=== PATIENT | female | born 1980 | race Caucasian/White ===

== ENCOUNTER 2016-12-07 13:17 | Emergency (ER) | payer OTHER ==
[2016-12-07 13:21] VITALS: BP 131/72; PULSE 84; TEMP 98; BMI 28.9
[2016-12-07 16:08] LABS: BASOPHIL 0.5 % (0-2.0); EOSINOPHIL 0.8 % (0-4.5); MCH 22.1 pg (25.7-33.7); MCHC 31.3 g/dl (32.0-36.0); MEAN CELL VOLUME 70.6 fl (80-96); MEAN PLT VOLUME 9.1 fl (7.5-11.1); NEUTROPHILS 61.6 % (42.8-82.8); PLATELET COUNT 270 K/MM3 (134-434); RDW 19.5 % (11.6-15.6); WHITE BLOOD COUNT 6.9 K/mm3 (4.0-10.0)
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
[2016-12-07 16:28] LABS: ALBUMIN 3.6 g/dl (3.4-5.0); ALK PHOS 88 U/L (45-117); ANION GAP 8 (8-16); BILIRUBIN,TOTAL 0.2 mg/dL (0.2-1.0); CALCIUM 9.1 mg/dL (8.5-10.1); CO2 26 mmol/L (21-32); CREATININE 0.7 mg/dL (0.55-1.02); GLUCOSE,RANDOM 92 mg/dL (74-106); SGOT/AST 16 U/L (15-37); SGPT/ALT 22 U/L (12-78); TOT PROT 7.4 g/dl (6.4-8.2)
[2016-12-07 16:42] LABS: INR 1.05 (0.82-1.09); PROTHROMBIN TIME (PATIENT) 11.6 SEC (9.98-11.88)
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
== END 2016-12-07 21:06 | disposition home or self-care (01) ==
LOC: JERFT 13:17 → JER 13:17
DX: M54.6 Pain in thoracic spine (principal); M54.2 Cervicalgia; V43.52XA Car driver injured in collision with other type car in traffic accident, initial encounter; Y92.414 Local residential or business street as the place of occurrence of the external cause; Y93.89 Activity, other specified; F31.9 Bipolar disorder, unspecified; G43.909 Migraine, unspecified, not intractable, without status migrainosus; D64.9 Anemia, unspecified; Y99.8 Other external cause status
CPT/HCPCS: 36415; 71020-TC; 71101-TC-RT; 72125-TC; 74177-TC; 80053; 84703; 85025; 85610; 86850; 86900; 86901; 99282-25

== ENCOUNTER 2017-07-24 08:45 | Emergency (ER) | payer OTHER ==
[2017-07-24 09:07] VITALS: BP 126/78; PULSE 87; TEMP 97.8; BMI 27.9
[2017-07-24] MEDS ORDERED: KETOROLAC TROMETHAMINE 30 MG/1 ML VIAL IM ONE (09:26)
[2017-07-24] MEDS ORDERED: KETOROLAC TROMETHAMINE 30 MG/1 ML VIAL ONE (09:29)
--- NOTE | 2017-07-24 09:30 | PDOC ---
History of Present Illness - General Chief Complaint: Pain, Acute Stated Complaint: ARM PAIN Time Seen by Provider: 07/24/17 09:15 History Source: Patient Exam Limitations: No Limitations - History of Present Illness Initial Comments: 07/24/17 09:26 36 year old female with a history of bipolar, and surgical history of x 3 and endometrial ablation present with pain to left elbow after lifting a heavy stroller with one hand and placing it in the trunk of her car. States she heard a pop when she placed the stroller in the car. Reports pain that limits the movement of her arm and radiates into fingers. Denies numbness or tingling Occurred: reports: yesterday Upper Extremity Pain Location: left: elbow Method of Injury: reports: other (heavy lifting) Modifying Factors: improves with: immobilization, pain medication Extremity Pain Location - Extremity Pain Location Extremity Pain Locations: left: elbow Past History - Travel Traveled outside of the country in the last 30 days: No - Past Medical History Allergies/Adverse Reactions: Allergies Allergy/AdvReac Type Severity Reaction Status Date / Time No Known Allergies Allergy Verified 07/24/17 09:05 Home Medications: Ambulatory Orders Clonazepam [Klonopin] 1 mg PO Q12H 04/18/14 Lamotrigine [Lamictal] 25 mg PO DAILY 04/18/14 Quetiapine Fumarate [Seroquel -] 50 mg PO HS 12/07/16 Ibuprofen [Motrin -] 600 mg PO QID #28 tablet 07/24/17 Asthma: No CVA: No COPD: No CHF: No DVT: No Diabetes: No HTN: No Psychiatric Problems: Yes (BIPOLAR) - Surgical History Cholecystectomy: Yes - Immunization History Immunization Up to Date: Yes - Suicide/Smoking/Psychosocial Hx Smoking Status: No Smoking History: Never smoked Have you smoked in the past 12 months: No Number of Cigarettes Smoked Daily: 0 Information on smoking cessation initiated: No Hx Alcohol Use: No Drug/Substance Use Hx: No Substance Use Type: None Review of Systems - Review of Systems Able to Perform ROS?: Yes Is the patient limited Mauritian proficient: No Constitutional: No: Chills, Fever, Night Sweats, Weakness HEENTM: No: Double Vision, Ear Discharge, Nose Congestion, Tinnitus, Hearing Loss, Throat Pain, Mouth Pain Respiratory: No: Cough, Orthopnea, Shortness of Breath, Wheezing Cardiac (ROS): No: Chest Pain, Palpitations, Syncope ABD/GI: No: Nausea, Poor Appetite, Poor Fluid Intake, Indigestion : No: Hematuria, Incontinence, Testicular Swelling Musculoskeletal: Yes: Joint Pain, Joint Swelling. No: Muscle Pain, Muscle Weakness Integumentary: No: Bruising, Erythema, Flushing Neurological: No: Headache, Seizure, Tingling, Tremors *Physical Exam - Vital Signs Last Vital Signs Temp Pulse Resp BP Pulse Ox 97.8 F 87 18 126/78 99 07/24/17 09:05 07/24/17 09:05 07/24/17 09:05 07/24/17 09:05 07/24/17 09:05 - Physical Exam General Appearance: Yes: Nourished, Appropriately Dressed HEENT: positive: SPENCER Neck: positive: Supple. negative: Lymphadenopathy (R), Lymphadenopathy (L) Respiratory/Chest: positive: Lungs Clear, Normal Breath Sounds Cardiovascular: positive: Regular Rhythm, Regular Rate, S1, S2 Musculoskeletal: negative: Normal Inspection, CVA Tenderness Extremity: positive: Normal Capillary Refill, Other (discomfort with pronation and supination of forearm). negative: Swelling, Erythema Neurologic: positive: certified ski patroller II-XII NML intact, Fully Oriented, Alert, Normal Mood/ Affect Medical Decision Making - Medical Decision Making 07/24/17 09:31 36 year old female with a history of bipolar and x 3 presents with pain in left elbow after lifting a stroller into a trunk A/P left elbow injury -analgesia -xray of left elbow reasses 07/24/17 09:59 xray: negative for fracture or dislocation d/c home with referral to pmd and ortho as needed rx: ibuprofen sling provided *DC/Admit/Observation/Transfer Diagnosis at time of Disposition: Left elbow pain - Discharge Dispostion Disposition: HOME Condition at time of disposition: Good Admit: No - Prescriptions Prescriptions: Ibuprofen [Motrin -] 600 mg PO QID #28 tablet - Referrals Referrals: Marco Chow MD [Staff Physician] - 1 week Tom Rosas MD [Primary Care Provider] - 3 days - Patient Instructions Printed Discharge Instructions: DI for Elbow Pain Additional Instructions: Please apply ice compress for 20 minutes 3 to 4 times daily wear sling for comfort when up and about If worsening symptoms or prolonged past 2 weeks call orthopedic for appointment Return to ed for numbness or tingling in fingers - Post Discharge Activity Forms/Work/School Notes: Back to Work
== END 2017-07-24 10:07 | disposition home or self-care (01) ==
LOC: JERFT 08:45
PROC: 3E0233Z Introduction of Anti-inflammatory into Muscle, Percutaneous Approach (ICD-10-PCS; principal; 2017-07-24)
DX: S59.802A Other specified injuries of left elbow, initial encounter (principal); X50.0XXA Overexertion from strenuous movement or load, initial encounter; Y93.89 Activity, other specified; Y92.89 Other specified places as the place of occurrence of the external cause; Y99.8 Other external cause status
CPT/HCPCS: 73070-TC-LT-FY; 99281-25

== ENCOUNTER 2018-09-13 09:47 | Emergency (ER) | payer OTHER | END 2018-09-13 15:10 | disposition home or self-care (01) | LOC: JER 09:47 ==

== ENCOUNTER 2023-01-11 13:28 | Emergency (ER) | payer BC, OTHER ==
[2023-01-11] MEDS ORDERED: ACETAMINOPHEN 500 MG TABLET (FP) PO ONE (13:50)
[2023-01-11] MEDS ORDERED: DIPHTH,PERTUSS(ACELL),TET 0.5 ML DISP.SYRIN IM ONE ×2 (13:53→13:56)
[2023-01-11] MEDS ORDERED: ACETAMINOPHEN 500 MG TABLET (FP) ONE (13:54)
[2023-01-11] MEDS ORDERED: METHOCARBAMOL 500 MG TABLET PO ONE (13:55)
[2023-01-11 13:56] VITALS: BP 133/89; PULSE 88; RESP 16; TEMP 98.4; BMI 23.6
[2023-01-11] MEDS ORDERED: METHOCARBAMOL 500 MG TABLET ONE (13:56)
[2023-01-11] MEDS ORDERED: KETOROLAC TROMETHAMINE 30 MG/1 ML VIAL IM ONE (14:53)
[2023-01-11] MEDS ORDERED: LIDOCAINE 5% TOPICAL PATCH TP ONE (14:53)
[2023-01-11] MEDS ORDERED: KETOROLAC TROMETHAMINE 30 MG/1 ML VIAL ONE (14:59)
[2023-01-11] MEDS ORDERED: LIDOCAINE 5% TOPICAL PATCH ONE (14:59)
[2023-01-11] MEDS ORDERED: LIDOCAINE PATCH REMOVAL MC ONE (22:00)
== END 2023-01-11 15:28 | disposition home or self-care (01) ==
LOC: FER 13:28
PROC: 3E0233Z Introduction of Anti-inflammatory into Muscle, Percutaneous Approach (ICD-10-PCS; principal; 2023-01-11)
PROC: 3E0234Z Introduction of Serum, Toxoid and Vaccine into Muscle, Percutaneous Approach (ICD-10-PCS; 2023-01-11)
DX: S16.1XXA Strain of muscle, fascia and tendon at neck level, initial encounter (principal); S00.01XA Abrasion of scalp, initial encounter; M47.814 Spondylosis without myelopathy or radiculopathy, thoracic region; R51.9 Headache, unspecified; M54.2 Cervicalgia; M54.9 Dorsalgia, unspecified; W14.XXXA Fall from tree, initial encounter; Y93.39 Activity, other involving climbing, rappelling and jumping off; Y92.79 Other farm location as the place of occurrence of the external cause
CPT/HCPCS: 70450-TC; 72125-TC; 72128-TC; 90715; 99284-25

== ENCOUNTER 2023-12-06 00:04 | Emergency (ER) | payer BC, OTHER ==
[2023-12-06 00:25] VITALS: BP 139/87; RESP 18; TEMP 97.4; BMI 23.3
[2023-12-06 00:33] VITALS: PULSE 100
[2023-12-06 01:08] LABS: BASO % 0.4 % (0-2.0); EOS % 0.6 % (0-4.5); HEMATOCRIT 37.4 % (32.4-45.2); HEMOGLOBIN 12.5 GM/dL (10.7-15.3); LYMPH % 20.5 % (8-40); MCH 30.1 pg (25.7-33.7); MCHC 33.5 g/dl (32.0-36.0); MEAN CELL VOLUME 89.8 fl (80-96); MONO % 8.9 % (3.8-10.2); NEUT % 69.6 % (42.8-82.8); PLATELET COUNT 241 10^3/uL (134-434); RBC 4.16 M/mm3 (3.60-5.2); RDW 13.4 % (11.6-15.6); WHITE BLOOD COUNT 7.5 K/mm3 (4.0-10.0)
[2023-12-06 01:29] LABS: POTASSIUM 3.4 mmol/L (3.5-5.1)
[2023-12-06 01:31] LABS: ALBUMIN 3.7 g/dl (3.4-5.0)
[2023-12-06 01:32] LABS: BLOOD UREA NITROGEN 11.8 mg/dL (7-18); MAGNESIUM 2.5 mg/dL (1.8-2.4)
[2023-12-06 01:35] LABS: CREATININE 0.9 mg/dL (0.55-1.3)
[2023-12-06 01:36] LABS: BILIRUBIN,TOTAL 0.3 mg/dL (0.2-1); TOT PROT 7.2 g/dl (6.4-8.2)
[2023-12-06 02:26] LABS: HIV INTERPRETATION NEGATIVE (NEGATIVE)
== END 2023-12-06 02:23 | disposition home or self-care (01) ==
LOC: JER 00:04
DX: R55 Syncope and collapse (principal); R10.9 Unspecified abdominal pain
CPT/HCPCS: 36415; 80053; 82962; 83735; 84484; 85025; 86803; 87389; 93005; 93010; 99284-25

== ENCOUNTER 2025-01-23 12:04 | Emergency (ER) | payer BC, OTHER ==
[2025-01-23 12:16] VITALS: BP 122/100; PULSE 85; RESP 18; TEMP 97.9; BMI 25.4
[2025-01-23] MEDS ORDERED: ACETAMINOPHEN INJECTION 100 ML ONE (13:08)
[2025-01-23] MEDS: SODIUM CHLORIDE 0.9% 500 ML INFUS.BAG IV ONE (13:21)
[2025-01-23] MEDS: ACETAMINOPHEN 1000 MG/100 ML BAG IVPB ONE (13:21)
[2025-01-23] MEDS ORDERED: KETOROLAC TROMETHAMINE 15 MG/ML VIAL ONE ×2 (13:50→16:04)
[2025-01-23] MEDS: KETOROLAC TROMETHAMINE 15 MG/ML VIAL IVPUSH ONE ×2 (13:55→16:12)
[2025-01-23 14:17] LABS: ABSOLUTE IMMATURE GRANULOCYTES 0.01 x10^3/uL (0.0-0.031); BASOPHILS # 0.02 x10^3/uL (0.01-0.08); EOSINOPHIL % 0.5 % (0.7-5.8); EOSINOPHILS # 0.03 x10^3/uL (0.04-0.36); MCHC 32.4 g/dl (32.2-35.5); MEAN CELL VOLUME 93.2 fl (79.4-94.8); MEAN PLT VOLUME 11.2 fl (9.4-12.3); MONOCYTE # 0.37 x10^3/uL (0.24-0.86); MONOCYTE % 6.1 % (4.7-12.5); RDW 11.8 % (12.2-17.1)
[2025-01-23 14:35] LABS: ALK PHOS 107.0 U/L (45-117); CO2 28.0 mmol/L (21-32); CREATININE 1.0 mg/dl (0.6-1.3); GLUCOSE,RANDOM 89.0 mg/dl (74-106); SGOT/AST 20.0 U/L (15-37); SGPT/ALT 17.0 U/L (7-52); TOT PROT 7.4 g/dl (6.4-8.2)
[2025-01-23 15:35] LABS: HIV INTERPRETATION NEGATIVE (NEGATIVE)
[2025-01-23 15:37] LABS: HCV DIAGNOSTIC IN-HOUSE W/RFLX NON-REACTIVE (NONREACTIVE)
== END 2025-01-23 19:44 | disposition home or self-care (01) ==
LOC: FER 12:04
PROC: 3E033NZ Introduction of Analgesics, Hypnotics, Sedatives into Peripheral Vein, Percutaneous Approach (ICD-10-PCS; principal; 2025-01-23)
PROC: 3E0333Z Introduction of Anti-inflammatory into Peripheral Vein, Percutaneous Approach (ICD-10-PCS; 2025-01-23)
PROC: 3E0333Z Introduction of Anti-inflammatory into Peripheral Vein, Percutaneous Approach (ICD-10-PCS; 2025-01-23)
DX: R10.32 Left lower quadrant pain (principal); R11.0 Nausea
CPT/HCPCS: 36415; 74177-TC; 76830-TC; 80053; 81003; 83690; 84703; 85025; 86803; 87389; 99285-25; Q9967